=== PATIENT | female | born 1980 | race Caucasian/White ===

== ENCOUNTER 2024-12-09 12:09 | Emergency (ER) | payer BC, SELFPAY ==
[2024-12-09 12:10] VITALS: BP 165/109
--- NOTE | 2024-12-09 13:30 | ED.GENMED ---
History of Present Illness
General
Chief Complaint: Allergic Reaction
Time Seen by Provider: 12/09/24 13:25
History of Present Illness
History of Present Illness:
TIME OF INITIAL EVALUATION
- 1:30 PM
REVIEW OF OLD RECORDS
- High blood pressure; no old records available for review in [facility]
Note:
CHIEF COMPLAINT(S)
Allergic reaction with hives and tongue itching.
HISTORY OF PRESENT ILLNESS
The patient is a 44-year-old female with a history of allergies to certain foods and molds. She presented to the emergency department with symptoms suggesting an allergic reaction. The episode began after she started a course of Azithromycin (Z-Floyd)
for a severe throat infection that was treated as streptococcal pharyngitis, despite negative strep tests. She completed a 10-day course of Cephalexin from November 22 to December 01, followed by lingering cough symptoms which led her primary care
physician to prescribe another round of steroids and a Z-Floyd on Thursday.
By the fourth day of Azithromycin (yesterday), she began experiencing hives, first noticed by her daughter, who commented that her back appeared sunburned. As of this morning, the patient noticed tongue itching and heaviness, prompting her to
self-administer an EpiPen prior to presenting to the emergency department.
The patient has a history of chronic streptococcal infections as a child but has not required a tonsillectomy. Her airway appears patent with some minor swelling in the oropharyngeal region. She reported that her tongue felt heavy and itchy but
denied any severe respiratory distress. The last dose of steroids was taken yesterday.
ALLERGIES
The patient reports allergies to certain foods and molds, as well as to some unspecified medications and antibiotics.
PAST MEDICAL HISTORY
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
MEDICATIONS
Azithromycin (Z-Floyd) � recently initiated
Cephalexin � completed course from November 22 to
EpiPen � used this morning
Medrol (steroids) � last taken yesterday
PHYSICAL EXAM
General: Alert, no acute distress.
Skin: Warm, dry, with mild patchy faint erythema to the anterior chest wall and upper back
Head: Normocephalic, atraumatic.
Neck: Supple, trachea midline.
Eyes, Ears, Nose, and Throat: Oral mucosa moist, minor if any oropharyngeal swelling noted, uvula is extremely small. There is no tongue edema.
Cardiovascular: Normal peripheral perfusion, No edema.
Respiratory: Respirations are non-labored.
Gastrointestinal : Abdomen nondistended.
Back: Normal range of motion, Normal alignment.
Musculoskeletal: Normal range of motion, normal strength.
Neurological: Alert and oriented to person, place, time, and situation, No focal neurological deficit observed.
Psychiatric: Cooperative, appropriate mood & affect.
PROBLEM LIST
Acute: Allergic reaction possibly due to recent medication.
Chronic: History of chronic streptococcal pharyngitis.
PLAN
- Patient advised to continue Medrol (steroids) for the remaining three days.
- Administered a dose of Pepsid in the ED.
- Advised to discontinue Azithromycin.
- Refilled prescription for EpiPen.
- Discharge with education on monitoring for signs of severe allergic reactions and the importance of early intervention.
DIFFERENTIAL DIAGNOSIS
The Differential Diagnosis includes, in no particular order and is not limited to:
1. Allergic reaction to Azithromycin
2. Food allergy reaction
3. Other drug hypersensitivity reaction
4. Non-allergic adverse drug reaction
5. Viral exanthem
6. Urticaria of unknown etiology
7. Angioedema
8. Idiopathic anaphylaxis
9. Physical urticaria
10. Mast cell activation syndrome
SUMMARY OF ENCOUNTER
The patient, a 44-year-old female with a known history of allergies, presented to the emergency department following an allergic reaction characterized by hives and tongue itching, which she believed was related to a recent course of Azithromycin.
Prior to arrival, she self-administered an EpiPen and reported an improvement in symptoms by the time she reached the emergency department. She declined further administration of epinephrine but accepted a dose of famotidine. She also planned to
continue her current home medications including diphenhydramine (Benadryl) and steroids (Medrol).
DISPOSITION
The patient was discharged home with instructions to monitor for further signs of allergic reaction and to follow up with her healthcare provider as needed.
ASSESSMENT
It is likely that the allergic reaction was triggered by Azithromycin, which was administered for treatment of a suspected throat infection.
EMERGENCY TREATMENTS ADMINISTERED
A dose of famotidine (Pepcid).
PLAN
- Continue current oral medications, including diphenhydramine and steroids.
- Monitor for any further signs of severe allergic reaction such as tongue swelling or difficulty breathing, which would necessitate immediate medical attention.
PATIENT EDUCATION AND COUNSELING
The patient was educated on the importance of avoiding suspected allergens and the potential cross-reactivity with medications. Additionally, she was informed about recognizing early signs of an allergic reaction and when to seek emergency care.
MEDICATION RECONCILIATION
- Famotidine (Pepcid) administered in the emergency department.
- Continue diphenhydramine and Medrol as previously prescribed.
MEDICAL DECISION MAKING
- Number and Complexity of Problems Addressed: Chronic conditions affecting care include her history of allergies and previous streptococcal infections. Differential Diagnosis includes allergic reaction to medications, food allergy reaction, other
drug hypersensitivity reaction.
- Data:
- Category 1: The patients medication history was reviewed, including recent antibiotic treatment with Azithromycin and Cephalexin.
- Risk: Prescription drug management considered with the continuation of steroids and antihistamines. Potential escalation of care was considered but the patient was deemed stable for outpatient management.
DIAGNOSIS
- Allergic reaction
Phy Exam
Physical Exam
Physical Exam:
See HPI
Course
Orders/Labs/Results
Orders:
Orders
12/09/24 13:40
Famotidine [Pepcid] 40 mg PO NOW STA
Vital Signs
Initial and Last Documented VS:
Initial Vital Signs
Temp Pulse Resp BP Pulse Ox
36.6 C 98 20 165/109 99
12/09/24 12:10 12/09/24 12:10 12/09/24 12:10 12/09/24 12:10 12/09/24 12:10
Last Documented Vital Signs
Temp Pulse Resp BP Pulse Ox
36.6 C 98 20 165/109 99
12/09/24 12:10 12/09/24 12:10 12/09/24 12:10 12/09/24 12:10 12/09/24 13:31
*Pulse Oximetry
SaO2: 99
Oxygen Mode of Delivery: Room air
Patient hypoxic: no
*Critical Care Note
Total Time (30-74mins, 75-104mins- exclusive of procedures): Not Applicable
ED Attending Note
-
Portions of this chart may have been created with voice recognition software.� Occasional wrong word or��sound alike� substitutions may have occurred due to the inherent limitations of voice recognition software.
Discharge Plan
Departure
Patient Disposition: Home (Routine Discharge)
Date of Disposition: 12/09/24
Time of Disposition: 13:41
Patient with high blood pressure during this ER visit?: Yes
Discharge Problem:
Allergic reaction
Instructions: Hives (DC), Adverse Drug Reactions, Adult (DC), BLOOD PRESSURE
Prescriptions:
New
epinephrine [EpiPen 2-Floyd] 0.3 mg/0.3 mL auto-injector
0.3 mg IM Q5-15M PRN (Reason: anaphylaxis) Qty: 2 0RF
Activity Restrictions/Additional Instructions:
Return here if worse or other concerns. Continue your Medrol Dosepak and take Benadryl as needed for allergic reaction. We gave you a one-time dose of Pepcid. You could also continue Pepcid at home as it is another type of histamine jana. I
sent a prescription for an EpiPen to your pharmacy.
Interventions
Interventions:
*Risk Screen - Suicide Last Done: 12/09/24 12:10
*General Assessment Last Done: 12/09/24 12:10
*Neglect/Abuse Screening Last Done: 12/09/24 12:10
ED- Cardiac Assessment Last Done: 12/09/24 13:40
ED- Pulmonary Assessment Last Done: 12/09/24 13:40
Discharge Date and Time
Print Language: LAO
[2024-12-09] MEDS: PEPCID 40 MG PO (13:46)
== END 2024-12-09 14:16 | disposition home or self-care (01) ==
LOC: EMR 12:09
PROVIDERS: EMERGENCY PHYSICIAN Emergency Medicine; FAMILY PHYSICIAN Family Medicine
DX: T78.40XA Allergy, unspecified, initial encounter (principal); L50.0 Allergic urticaria; R03.0 Elevated blood-pressure reading, without diagnosis of hypertension
CPT/HCPCS: 99283

== ENCOUNTER → 2024-12-30 09:26 | Outpatient (REF) | payer BC, SELFPAY | LOC: RAD 09:26 | PROVIDERS: ATTENDING PHYSICIAN Family Medicine | DX: R05.9 Cough, unspecified (principal) | CPT/HCPCS: 71046 ==

== ENCOUNTER 2025-01-09 06:18 | Day surgery (SDC) | payer BC, SELFPAY ==
[2025-01-09] VITALS (10 sets, daily range): BP systolic 91–138; BP diastolic 59–95; BMI 31.8
== END 2025-01-09 11:30 | disposition home or self-care (01) ==
LOC: SDS 06:18
PROVIDERS: ATTENDING PHYSICIAN Otolaryngology
DX: J38.3 Other diseases of vocal cords (principal)
CPT/HCPCS: 31536; 87070; 88305; 88341; 88342

== ENCOUNTER → 2025-05-03 11:55 | Outpatient (REF) | payer BC, SELFPAY | LOC: WDC 11:55 | PROVIDERS: ATTENDING PHYSICIAN Family Medicine | DX: Z12.31 Encounter for screening mammogram for malignant neoplasm of breast (principal) | CPT/HCPCS: 77063; 77067 ==